=== PATIENT | male | born 1985 | race Two or more races ===

== ENCOUNTER 2019-12-05 08:43 | Outpatient (REF) | payer SELFPAY | END 2019-12-05 08:44 | disposition home or self-care (01) | LOC: HO.LAB 08:43 | PROVIDERS: Visit Provider Internal Medicine | DX: Z20.828 Contact with and (suspected) exposure to other viral communicable diseases (principal) | CPT/HCPCS: 87635 ==

== ENCOUNTER 2020-02-06 17:59 | Outpatient (REF) | payer BC, SELFPAY | END 2020-02-06 18:00 | disposition home or self-care (01) | LOC: HO.LAB 17:59 | PROVIDERS: Visit Provider Internal Medicine | DX: Z20.828 Contact with and (suspected) exposure to other viral communicable diseases (principal) | CPT/HCPCS: C9803; U0003 ==

== ENCOUNTER 2023-06-01 09:06 | Outpatient (AMB) | payer OTHER, SELFPAY ==
--- NOTE | 2023-06-01 09:07 | MHC.PC.OV ---
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 Z[place] Davis Required: No Accompanied by: Self / Same As Patient Allergies No Known Allergies Allergy (Verified 06/01/23 09:29) Medication List - Last Reconciled 06/01/23 by Zain Stevens CNP No Known Home Meds Tobacco use date assessed: 06/01/23 Dental Screening Dental Screen Date: 06/01/23 Did you have a dental visit in the last 12 months?: No Did you have a dental problem in the last 6 months where you did not have access to dental care?: No Was dental information given to patient?: Yes HPI HPI Comments History of Present Illness Details New patient Prior PCP:?[place], [place] Last office visit/CPE: About 10 years Acute issue(s): None PMHx: None SurgHx: None FHx: Mom: Asthma, [place]. Dad: DM, [place]. MGM: DM SocHx: Nonsmoker. Drinks alcohol occasionally. Occasional marijuana edibles He notes that he is not up-to-date on the influenza vaccine. He declines the vaccine He has not seen a dentist in over 18 months [facility] Medical History (Updated 06/01/23 @ 09:47 by Zain Stevens CNP) No pertinent past medical history Surgical History (Updated 06/01/23 @ 09:28 by ANSHUL Foss) No pertinent past surgical history Family History (Updated 06/01/23 @ 09:31 by ANSHUL Foss) Mother Asthma Diabetes Father Diabetes Heart attack Maternal Grandmother Diabetes Family/Other Diabetes Cancer Social History Housing: House Patient Tobacco Use Status: Never used Tobacco e-Cigarette/Vaping Use: Never Used service: No Current occupational status: employed 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 1. Little interest or pleasure in doing things: not at all 2. Feeling down, depressed, or hopeless: more than half the days 3. Trouble falling or staying asleep, or sleeping too much: more than half the days 4. Feeling tired or having little energy: more than half the days 5. Poor appetite or overeating: not at all 6. Feeling bad about yourself - or that you are a failure or have let yourself or your family down: not at all 7. Trouble concentrating on things, such as reading the newspaper or watching television: not at all 8. Moving or speaking so slowly that other people could have noticed. Or the opposite - being so fidgety or restless that you have been moving around a lot more than usual: not at all 9. Thoughts that you would be better off or of hurting yourself in some way: not at all Total score: 6 Depression Screening Interpretation: Positive (Denies depression ) Depression Screening Done: Yes 43536 - PHQ-9 Billing: Yes Source: Developed by Drs. Gucci Omer, Genesis Best, Pacheco Walker and colleagues, with an educational shawna from [employer]. Thrive Questionnaire Date Thrive assessed: 06/01/23 I am a: Patient What is your living situation today?: I have a steady place to live Within the past 12 months, did the food you bought not last and you didn't have the money to get more?: Never true Within the past 12 months, did you worry whether your food would run out before you got money to buy more?: Sometimes True Do you have trouble paying for medicines?: No Do you have trouble getting transportation to medical appointments?: No Do you have trouble paying your heating and electricity bill?: No Do you have trouble taking care of your child, family member or friend?: No Do you have trouble with day-to-day activities such as bathing, preparing meals, shopping, managing finances, etc.?: No Are you currently unemployed and looking for a job?: No Are you interested in more education?: Yes Please select the resources that you would like help with: Utilities and Education Currently or been in a relationship where the following occur: no concerns reported THRIVE Score: 1 AUDIT C Alcohol Use Questionnaire (AUDIT-C) 1. How often do you have a drink containing alcohol?: 2-4 times a month 2. How many drinks containing alcohol do you have on a typical day when you are drinking?: 5 or 6 3. How often do you have six or more drinks on one occasion?: Monthly Total Score: 6 OMAR-7 AMB Questionnaire OMAR-7 Date OMAR - 7 assessed: 06/01/23 Feeling nervous, anxious, or on edge: 2 = More than half the days Not being able to stop or control worryin = More than half the days Worrying too much about different things: 2 = More than half the days Trouble relaxin = Not at all Being so restless that it is hard to sit still: 0 = Not at all Becoming easily annoyed or irritable: 2 = More than half the days Feeling afraid as if something awful might happen: 0 = Not at all Total OMAR-7 score (0-4 normal; 5-9 mild; 10-14 moderate; 15-21 severe): 8 Source: Developed by Drs. Gucci Omer, Genesis Best, Pacheco Walker and colleagues, with an educational shawna from [employer]. OMAR-7 Assessment Billing OMAR-7 Assessment Tool: OMAR-7 Assessment 83983 Review of Systems Const Details: Denies chills, Denies fatigue, Denies fever(s), Denies headache(s) and Denies weakness HEENT Denies change in vision, Denies dizziness, Denies headache(s), Denies hearing loss, Denies nasal congestion, Denies sinus pain, Denies sinus pressure and Denies sore throat Card Denies chest pain, Denies lightheadedness, Denies dyspnea and Denies other (palpitations) Resp Denies cough, Denies dyspnea and Denies wheezing GI Denies abdominal pain, Denies melena, Denies hematochezia, Denies change in bowel habits, Denies dyspepsia and Denies nausea Denies hematuria and Denies dysuria Musc Denies abnormal gait, Denies myalgias, Denies arthralgias, Denies numbness and Denies tingling Skin/Breast Denies rash, Denies unusual bruising and Denies wounds Neuro Denies abnormal gait, Denies dizziness, Denies headache(s), Denies memory loss, Denies numbness, Denies Sensory deficit (Neuro), Denies tingling and Denies weakness Psych Denies anxiety, Denies depression and Denies memory loss Endo Denies cold intolerance, Denies fatigue, Denies heat intolerance, Denies polydipsia and Denies polyuria Jake/Lymph Denies easy bleeding and Denies easy bruising Aller/Immun Denies wheezing Physical exam (Primary Care) Vital Signs: Last Vital Signs Temp 97.6 F 06/01/23 09:09 Pulse 70 06/01/23 09:09 Resp 13 06/01/23 09:09 BP 112/76 06/01/23 09:09 Pulse Ox 98 06/01/23 09:09 Oxygen Delivery Method Room Air 06/01/23 09:09 BMI result Body Mass Index 24.9 Tobacco/Smoking Status: Tobacco use Status Tobacco use date assessed 06/01/23 06/01/23 09:18 Patient Tobacco Use Status Never used Tobacco 06/01/23 09:18 e-Cigarette/Vaping Use Never Used 06/01/23 09:18 PHQ-9: PHQ-9 Score PHQ-9: Total score 6 06/01/23 09:27 Depression Screening Interpretation: Positive (Denies depression ) Thrive Assessment: Date of Thrive Assessment Date Thrive assessed 06/01/23 06/01/23 09:18 Currently or been in a relationship where the following occur: no concerns reported Const Other: General: no acute distress, well developed, alert and awake Nutritional Appearance: well nourished Orientation/consciousness: patient oriented x3 HENMT Head: Yes normocephalic and Yes atraumatic Ears: hearing grossly normal bilaterally and TM's normal bilaterally General nose exam: Normal external nose present and Normal nares present Mouth: Normal oral and palatal mucosa present and moist mucous membranes Teeth and gingiva: dentition normal Throat: Yes oropharynx normal Eyes Pupils: Equal, round and reactive pupils present and Pupil accommodation reflex normal EOM: EOMs intact bilaterally Neck Neck: Yes normal visual inspection, Yes no lymphadenopathy and Yes trachea midline Thyroid: Thyroid normal Carotids: no bruits Lymphatic: no lymphadenopathy noted Chest Chest palpation & inspection: normal inspection of the chest Resp Effort & Inspection: normal respiratory effort Auscultation: clear to auscultation bilaterally Cardio Rate: regular rate Rhythm: regular rhythm Heart sounds: S1 normal heart sound present, S2 normal heart sound present, no gallops, no murmurs and no rubs Bruits: no abdominal aortic bruits and no carotid bruits GI Palpation (GI): No Abdominal aortic bruit present, Soft to palpation, nontender, No hepatosplenomegaly present and No Rebound tenderness present Auscultation: normal bowel sounds General: Yes no CVA tenderness Back/Spine/Pelvis Back: no CVA tenderness Cervical Spine: cervical ROM normal and No Cervical spine tenderness Thoracic/Lumbar Spine: thoraco-lumbar ROM normal, No pain with thoraco-lumbar ROM, No thoracic spinal tenderness and No lumbar spinal tenderness Skin General: warm and dry. Normal skin color. Normal skin turgor Lesions: no lesions Rashes: no rashes Trauma: no lacerations or abrasions Wounds: no wounds Nails: normal Neuro General: patient oriented x3, gait normal and CN's II-XI intact bilaterally Cranial nerves: Yes Equal, round and reactive pupils present Cognition (Neuro): normal cognition Gait exam (Neuro): Normal gait present Motor exam (neuro): 5/5 motor strength present throughout Sensory Exam: No Sensory deficit (Neuro) Deep tendon reflexes (DTR's): Right patellar reflex intensity grade: 2+ and Left patellar reflex intensity grade: 2+ Extrem General: Yes normal to inspection, No edema and No calf tenderness Psych Appearance: grossly normal Affect: normal affect Attitude: cooperative Thought process: Normal thought process present Assessment and Plan Assessment & Plan (1) Normal physical examination, routine: Code(s): Z00.00 - Encounter for general adult medical examination without abnormal findings Plan: No significant physical restrictions or limitations noted Healthy diet and routine exercise encouraged Advised to establish with a dentist for routine dental care Encouraged to get fasting blood work done and follow-up for telehealth visit for labs review in 2-3 weeks Return sooner with symptoms or concerns Verbalized understanding and agreed with treatment plan (2) Laboratory tests ordered as part of a complete physical exam (CPE): Code(s): Z00.00 - Encounter for general adult medical examination without abnormal findings Plan: Fasting labs ordered as part of a complete physical exam. Advised to fast for at least 10 hours before getting labs drawn. May drink water Verbalized understanding and agreed with treatment plan. Orders: Orders Complete Blood Count Auto Diff Today Z00.00 - Encounter for general adult medical examination without abnormal findings Comprehensive [place]. Panel Fast Today Z00.00 - Encounter for general adult medical examination without abnormal findings Lipid Panel Today Z00.00 - Encounter for general adult medical examination without abnormal findings TSH reflex Free T4 Today Z00.00 - Encounter for general adult medical examination without abnormal findings UA CC w/rflx Micro + Cult Today Z00.00 - Encounter for general adult medical examination without abnormal findings Coding Level of Care Code New Pt Prev Care 18-39yr([id number] Diagnoses Normal physical examination, routine Z00.00 Laboratory tests ordered as part of a complete physical exam (CPE) Z00.00 Additional Codes OMAR-7 Assessment Billing - OMAR-7 Assessment Tool: OMAR-7 Assessment 64027 ([id number])
[2023-06-01 09:09] VITALS: BP 112/76; PULSE 70; RESP 13; TEMP 36.4; O2SAT 98; BMI 24.9
== END 2023-06-01 09:47 | disposition home or self-care (01) ==
PROVIDERS: Visit Provider Nurse Practitioner Family
DX: Z00.00 Encounter for general adult medical examination without abnormal findings (principal)
CPT/HCPCS: 99385

== ENCOUNTER 2023-06-09 10:24 | Outpatient (REF) | payer OTHER, SELFPAY ==
[2023-06-09 11:21] LABS: MANUAL DIFF FLAG NO
[2023-06-09 11:44] LABS: Basophils Percent Auto 0.7 % (0-2); Eosinophils Absolute Auto 0.1 X10*3/uL (0.0-0.4); Eosinophils Percent Auto 2.5 % (0-4); Hematocrit 43.6 % (42.0-52.0); Imm Gran Abs Auto 0.01 X10*3/uL (0.00-0.03); Imm Gran Pct Auto 0.2 % (0.0-0.4); Lymphocytes Absolute Auto 1.9 X10*3/uL (1.2-4.9); Lymphocytes Percent Auto 33.5 % (20-40); Mean Corpuscular HGB Conc 34.4 g/dl (31.0-36.0); Mean Corpuscular Hemoglobin 29.8 pg (27.0-33.0); Mean Corpuscular Volume 86.7 fL (80.0-98.0); Monocytes Absolute Auto 0.5 X10*3/uL (0.1-1.2); Monocytes Percent Auto 9.5 % (2-11); Neutrophils Absolute Auto 3.1 x10*3/uL (2.0-8.3); Neutrophils Percent Auto 53.6 % (45-73); Platelet Count 177 X10*3/uL (160-400); Red Blood Count 5.03 X10*6/uL (4.60-5.80); Red Cell Distribution Width 12.8 % (11.0-16.0); White Blood Count 5.7 X10*3/uL (4.8-10.8)
[2023-06-09 11:44] LABS: Appearance Urine Clear; Color Urine Yellow; Glucose Urine UA Negative (Negative); Leukocyte Esterase Urine Negative (Negative); Nitrite Urine Negative (Negative); PH 6.5 (5.0-9.0); Urine Blood Negative (Negative); Urine Ketones Negative (Negative); Urine Protein Negative (Neg-Trace)
[2023-06-09 12:31] LABS: Alanine Aminotransferase 46 U/L (0-40); Albumin Level 4.3 g/dL (3.5-5.0); Alkaline Phosphatase 66 U/L (39-117); Anion Gap 10 (12-20); Aspartate Amino Transferase 29 U/L (5-37); Bilirubin Total 0.6 mg/dL (0.0-1.0); Blood Urea Nitrogen 14 mg/dL (9-16); Calcium 9.4 mg/dL (8.4-10.2); Carbon Dioxide 30 mmol/L (22-29); Chloride 103 mmol/L (96-108); Cholesterol 177 mg/dL (<200); Estimated Glomerular Filt Rate > 60; Glucose Fasting 86 mg/dL (60-99); HDL Cholesterol 65 mg/dL (>40); LDL Cholesterol Calculated 104 mg/dL (<100); Potassium 4.1 mmol/L (3.3-5.1); Sodium 139 mmol/L (135-145); Total Protein 7.2 g/dL (6.5-8.0); Triglycerides 43 mg/dL (<150)
[2023-06-09 12:34] LABS: TSH reflex Free T4 0.48 uIU/mL (0.32-4.0)
== END 2023-06-09 10:25 | disposition home or self-care (01) ==
LOC: HO.WFDLDS 10:24
PROVIDERS: Visit Provider Nurse Practitioner Family
DX: Z00.00 Encounter for general adult medical examination without abnormal findings (principal); Z13.6 Encounter for screening for cardiovascular disorders
CPT/HCPCS: 36415; 80053; 80061; 81003; 84443; 85025

== ENCOUNTER 2023-08-31 08:14 | Outpatient (REF) | payer OTHER, SELFPAY ==
--- NOTE | ~2023-08-31 | XR_ITS ---
EXAMINATION: XR WRIST, RIGHT CLINICAL INFORMATION: Right hand pain. Wrist injury. COMPARISON: None TECHNIQUE: PA, lateral, oblique, and scaphoid views of the right wrist. FINDINGS: No acute fracture or malalignment. There is an old healed fifth metacarpal fracture with dorsal angulation at the shaft. Joint spaces appear well-preserved. Mild soft tissue swelling. 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 No erosions. Carpal alignment appears normal. XR/XR wrist RT w scaphoid IMPRESSION: 1. No acute fracture or malalignment. 2. Old healed fifth metacarpal fracture.
== END 2023-08-31 08:15 | disposition home or self-care (01) ==
LOC: HO.HOSX 08:14
DX: M25.531 Pain in right wrist (principal)
CPT/HCPCS: 73110

== ENCOUNTER 2023-08-31 09:14 | Outpatient (AMB) | payer OTHER, SELFPAY ==
--- NOTE | 2023-08-31 09:22 | A.OFFVIS_ITS ---
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 Pt reports punching a wall on 08/21/23. Since the injury he says it has been swollen and has limited range of motion. He has been taking Tylenol and Ibuprofen to help manage the pain. 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 Patient reports that he is frustrated, hit a wall, and since that time has been experiencing ulnar-sided wrist pain and swelling. Today, he reports that his pain and swelling have improved significantly since time of injury, but he still experiences some pain. He reports no pain in his fingers, no numbness or tingling. 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 Cognitive needs: No Hearing needs: No Vision needs: No Review of Systems Const All systems reviewed & are unremarkable except as noted in HPI and below Physical Exam Vital Signs: BMI result Body Mass Index 24.3 Const Other: Patient is alert, oriented, cooperative, and in no acute distress HEENT Head: Yes normocephalic and Yes atraumatic Resp Effort & Inspection: normal respiratory effort and able to speak in complete sentences Cardio Jugular venous distension: no JVD Neuro General: gait normal Cognition (Neuro): normal cognition Extrem Other: Patient is alert, oriented, and in no acute distress. Neuro: Median, ulnar, radial nerves motor and sensory intact and sensation is normal to the tips of all digits. Vascular: Cap refill brisk Pain: [id number] tenderness to palpation over the right ulnar styloid in the ECU tendon groove. No anatomical snuffbox tenderness No radial styloid tenderness No tenderness to palpation about the rest of the wrist. No tenderness to palpation at or over the metacarpals ROM: Right hand and wrist range of motion full and intact Skin: No lacerations or abrasions. Minimal edema over the right ulnar styloid General: No ecchymosis, erythema, or evidence of infection. Sunken deformities of the 4th and 5th metacarpals at the level of the MCP joint noted, likely secondary to old fractures. Psych: Appears grossly normal Affect normal Attitude cooperative Psych Appearance: grossly normal Mental Status: mental status grossly normal Results Reviewed Results Reviewed: X-rays obtained in the office today and independently reviewed by me, Felipe Mario PA-C, demonstrate no fracture or acute bony abnormality. Volar angulation of the distal 4th and 5th metacarpal noted, likely secondary to old fracture. Assessment & Plan Assessment & Plan (1) Wrist pain, right: Code(s): M25.531 - Pain in right wrist Category: Medical Plan 1. Right wrist pain Date of injury 08/21/2023 Patient reports that symptoms have improved significantly since date of injury Due to this, no acute intervention indicated at this time Patient advised to continue to move his right wrist and hand, but is advised to take it easy with any heavy lifting or impact Patient advised to avoid punching morris in the future order to prevent future injury Patient advised to call and make an appointment if he still is experiencing symptoms in 4-6 weeks Patient will follow-up p.r.n. with any acute concerns Orders: Orders XR wrist RT w scaphoid Today M79.641 - Pain in right hand Coding Level of Care Code New Pt Level 3 (70183) Diagnoses Wrist pain, right M25.531
[2023-08-31 09:24] VITALS: BMI 24.3
== END 2023-08-31 09:50 | disposition home or self-care (01) ==
DX: M25.531 Pain in right wrist (principal)
CPT/HCPCS: 99203

== ENCOUNTER 2023-10-12 16:36 | Outpatient (AMB) | payer OTHER, SELFPAY ==
--- NOTE | 2023-10-12 16:38 | A.OFFPC_ITS ---
Vital Signs 10/12/23 16:41 Height 5 ft 8 in Weight 160 lb 4 oz BMI 24.4 BP 128/78 Blood Pressure Location Lt brachial Position Sitting Respiration 16 Pulse 76 Pulse Source Pulse Oximeter Temp 98.4 F Temp Source Oral Pulse Oximetry (%) 97 Oxygen Delivery Method Room Air Intake Visit Reasons: RegularVisit Intake Note: patient here c/o tips of his fingers get real cold and white. 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 He also reports associated white coloration of the affected fingers. He showed a photo on his phone with white coloration of the affected fingers. His started 3 months ago and have progressively gotten worse. 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 He denies exposure to heat or cold at home or work. He reports being stressing 7/10 daily on a scale of 1/10 with 10 being the highest. He attributes his stress to everyday stuff regarding work and his children. He denies anxiety and depression. He denies any other symptoms. 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 Gucci Omer, Genesis Best, Pacheco Walker and colleagues, with an educational shawna from [employer]. Review of Systems Const Details: Const Denies chills, Denies fatigue, Denies fever(s), Denies headache(s) and Denies weakness ENT Denies dizziness and Denies headache(s) Card Denies chest pain, Denies lightheadedness, Denies dyspnea and Denies other (Palpitations) Resp Denies cough, Denies dyspnea, Denies wheezing and Denies other ( shortness of breath) GI Denies abdominal pain, Denies melena, Denies hematochezia, Denies change in bowel habits, Denies dyspepsia and Denies nausea Denies hematuria and Denies dysuria Musc Denies abnormal gait, Denies myalgias, Denies arthralgias, Denies numbness and Denies tingling Skin/Breast Denies rash, Denies unusual bruising and Denies wounds Neuro Denies abnormal gait, Denies dizziness, Denies headache(s), Denies memory loss, Denies numbness, Denies Sensory deficit (Neuro), Denies tingling and Denies weakness Psych Denies anxiety, Denies depression, Denies memory loss Endo Denies cold intolerance, Denies fatigue, Denies heat intolerance, Denies polydipsia and Denies polyuria Aller/Immun Denies wheezing Physical exam (Primary Care) Vital Signs: Last Vital Signs Temp 98.4 F 10/12/23 16:41 Pulse 76 10/12/23 16:41 Resp 16 10/12/23 16:41 BP 128/78 10/12/23 16:41 Pulse Ox 97 10/12/23 16:41 Oxygen Delivery Method Room Air 10/12/23 16:41 BMI result Body Mass Index 24.4 Tobacco/Smoking Status: Tobacco use Status Tobacco use date assessed 10/12/23 10/12/23 16:44 Patient Tobacco Use Status Never used Tobacco 10/12/23 16:40 e-Cigarette/Vaping Use Never Used 10/12/23 16:40 Thrive Assessment: Date of Thrive Assessment Date Thrive assessed 06/01/23 10/12/23 16:40 Const Other: General: no acute distress and well developed Nutritional Appearance: well nourished Orientation/consciousness: patient oriented x3 HENMT Head: Yes normocephalic and Yes atraumatic Eyes General: appearance normal, both eyes and all related structures Pupils: Equal, round and reactive pupils present EOM: EOMs intact bilaterally Resp Effort & Inspection: normal respiratory effort Auscultation: clear to auscultation bilaterally Cardio Rate: regular rate Rhythm: regular rhythm Heart sounds: S1 normal heart sound present, S2 normal heart sound present, no gallops, no murmurs and no rubs GI Palpation (GI): No Abdominal aortic bruit present, Soft to palpation, nontender, No hepatosplenomegaly present and No Rebound tenderness present Auscultation: normal bowel sounds General: Yes no CVA tenderness Back/Spine/Pelvis Back: no CVA tenderness Cervical Spine: cervical ROM normal and No Cervical spine tenderness Thoracic/Lumbar Spine: thoraco-lumbar ROM normal, No pain with thoraco-lumbar ROM, No thoracic spinal tenderness and No lumbar spinal tenderness Extrem General: Yes normal to inspection, No edema and No calf tenderness Skin General: warm and dry. Normal skin color. Normal skin turgor Lesions: no lesions Rashes: no rashes Trauma: no lacerations or abrasions Wounds: no wounds Nails: normal Neuro General: patient oriented x3, gait normal and no focal neuro deficit Cranial nerves: Yes Equal, round and reactive pupils present Cognition (Neuro): normal cognition Gait exam (Neuro): Normal gait present Sensory Exam: No Sensory deficit (Neuro) Psych Appearance: grossly normal Affect: normal affect Attitude: cooperative Thought process: Normal thought process present Assessment and Plan Assessment & Plan (1) Elevated ALT measurement: Code(s): R74.01 - Elevation of levels of liver transaminase levels Plan: Recent lab results reviewed with the patient; unremarkable findings except for slightly elevated ALT level, 46 Likely hepatic steatosis He notes that he consumes alcohol on weekends and sometimes drinks a lot Healthy diet and routine exercise encouraged Encouraged to limit or avoid alcohol consumption Will monitor liver panel level periodically or if presents with related symptoms Verbalized understanding and agreed with the plan (2) Raynaud phenomenon: Code(s): I73.00 - Raynaud's syndrome without gangrene Plan: Intermediate cold sensation and white discoloration of the right index and left middle and ring fingers He endorses significant stress related to work and family. No anxiety or depression Advised to keep his finger warm when experiencing symptoms Routine exercise encouraged to improve blood flow to his fingertips Follow-up for an extended physical exam next year or return sooner with worsening or new signs and symptoms Verbalized understanding and agreed with the treatment plan Coding Level of Care Code Est Pt Level 4 (13314) Complex EM visit Add On G2211 Diagnoses Elevated ALT measurement R74.01 Raynaud phenomenon I73.00
[2023-10-12 16:41] VITALS: BP 128/78; PULSE 76; RESP 16; TEMP 36.9; O2SAT 97; BMI 24.4
== END 2023-10-12 17:11 | disposition home or self-care (01) ==
PROVIDERS: Visit Provider Nurse Practitioner Family
DX: R74.01 Elevation of levels of liver transaminase levels (principal); I73.00 Raynaud's syndrome without gangrene
CPT/HCPCS: 99214

== ENCOUNTER 2024-06-02 10:04 | Outpatient (AMB) | payer OTHER, SELFPAY ==
--- NOTE | 2024-06-02 10:07 | A.OFFPC_ITS ---
Vital Signs 06/02/24 10:16 Height 5 ft 8 in Weight 171 lb 4 oz BMI 26.0 BP 116/60 Blood Pressure Location Rt brachial Position Sitting Respiration 16 Pulse 66 Pulse Source Pulse Oximeter Temp 98.2 F Temp Source Oral Pulse Oximetry (%) 98 Oxygen Delivery Method Room Air Intake Visit Reasons: CPE Intake Note: patient here for CPE Earth Observations Chief Scientist Required: No Allergies No Known Allergies Allergy (Verified 06/02/24 10:41) Tobacco use date assessed: 10/12/23 Dental Screening Dental Screen Date: 06/01/23 HPI HPI Comments History of Present Illness Details 39-year-old male presents for an extende d physical exam. Acute issue(s) - Astigmatism. He wears prescription gla sses. Past Medical History - Elevated ALT, astigmatism Social History - Nonsmoker. Does not vape. Drinks 5-10 beers 1 day weekly. Smokes cannabis occasionally - Has been making healthy dietary choice s. Exercises routinely. Generally sleep well Health maintenance - Last eye exam was few months ago with Anuja Ross: diagnosed with astigmatism of one of his eyes. Record not available. He will sign a release for his PCP to obtain his ophthalmology record - Last dental visit was over a year ago; He has a dental appointment in August 2024; encouraged to follow up as planned - Last tetanus vaccine was more than 10 years ago; received Tdap vaccine today - Has not been vaccinated for the flu season; declines vaccination [facility] Medical History (Updated 10/12/23 @ 17:12 by Zain Stevens CNP) No pertinent past medical history Surgical History (Updated 06/01/23 @ 09:28 by ANSHUL Foss) No pertinent past surgical history Family History Mother Asthma Diabetes Father Diabetes Heart attack Maternal Grandmother Diabetes Family/Other Diabetes Cancer Social History Housing: House Patient Tobacco Use Status: Never used Tobacco e-Cigarette/Vaping Use: Never Used service: No Current occupational status: employed 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 1. Little interest or pleasure in doing things: not at all 2. Feeling down, depressed, or hopeless: not at all 3. Trouble falling or staying asleep, or sleeping too much: several days 4. Feeling tired or having little energy: several days 5. Poor appetite or overeating: not at all 6. Feeling bad about yourself - or that you are a failure or have let yourself or your family down: not at all 7. Trouble concentrating on things, such as reading the newspaper or watching television: not at all 8. Moving or speaking so slowly that other people could have noticed. Or the opposite - being so fidgety or restless that you have been moving around a lot more than usual: not at all 9. Thoughts that you would be better off or of hurting yourself in some way: not at all Total score: 2 Depression Screening Interpretation: Negative Depression Screening Done: Yes 11161 - PHQ-9 Billing: Yes Source: Developed by Drs. Gucci Omer, Genesis Best, Pacheco Walker and colleagues, with an educational shawna from [employer]. Thrive Questionnaire Date Thrive assessed: 06/02/24 I am a: Patient What is your living situation today?: I have a steady place to live Within the past 12 months, did the food you bought not last and you didn't have the money to get more?: Sometimes True Within the past 12 months, did you worry whether your food would run out before you got money to buy more?: I choose not to answer this question Do you have trouble paying for medicines?: No Do you have trouble getting transportation to medical appointments?: No Do you have trouble paying your heating and electricity bill?: Yes Do you have trouble taking care of your child, family member or friend?: No Do you have trouble with day-to-day activities such as bathing, preparing meals, shopping, managing finances, etc.?: No Are you currently unemployed and looking for a job?: No Are you interested in more education?: Yes Please select the resources that you would like help with: None Currently or been in a relationship where the following occur: No concerns reported THRIVE Score: 2 AUDIT C Alcohol Use Questionnaire (AUDIT-C) 1. How often do you have a drink containing alcohol?: 2-4 times a month 2. How many drinks containing alcohol do you have on a typical day when you are drinking?: 5 or 6 3. How often do you have six or more drinks on one occasion?: Weekly Total Score: 7 Score Reviewed/Action Taken: Yes OMAR-7 AMB Questionnaire OMAR-7 Date OMAR - 7 assessed: 06/02/24 Feeling nervous, anxious, or on edge: 0 = Not at all Not being able to stop or control worryin = Several days Worrying too much about different things: 0 = Not at all Trouble relaxin = Not at all Being so restless that it is hard to sit still: 0 = Not at all Becoming easily annoyed or irritable: 1 = Several days Feeling afraid as if something awful might happen: 0 = Not at all Total OMAR-7 score (0-4 normal; 5-9 mild; 10-14 moderate; 15-21 severe): 2 Source: Developed by Drs. Gucci Omer, Genesis Best, Pacheco Walker and colleagues, with an educational shawna from [employer]. OMAR-7 Assessment Billing OMAR-7 Assessment Tool: OMAR-7 Assessment 79475 Review of Systems Const Details: Denies chills, Denies fatigue, Denies fever(s), Denies headache(s) and Denies weakness HEENT Denies change in vision, Denies dizziness, Denies headache(s), Denies hearing loss, Denies nasal congestion, Denies sinus pain, Denies sinus pressure and Denies sore throat Card Denies chest pain, Denies lightheadedness, Denies dyspnea and Denies other (palpitations) Resp Denies cough, Denies dyspnea and Denies wheezing GI Denies abdominal pain, Denies melena, Denies hematochezia, Denies change in bowel habits, Denies dyspepsia and Denies nausea Denies hematuria and Denies dysuria Musc Denies abnormal gait, Denies myalgias, Denies arthralgias, Denies numbness and Denies tingling Skin/Breast Denies rash, Denies unusual bruising and Denies wounds Neuro Denies abnormal gait, Denies dizziness, Denies headache(s), Denies memory loss, Denies numbness, Denies Sensory deficit (Neuro), Denies tingling and Denies weakness Psych Denies anxiety, Denies depression and Denies memory loss Endo Denies cold intolerance, Denies fatigue, Denies heat intolerance, Denies polydipsia and Denies polyuria Jake/Lymph Denies easy bleeding and Denies easy bruising Aller/Immun Denies wheezing Physical exam (Primary Care) Vital Signs: Last Vital Signs Temp 98.2 F 06/02/24 10:16 Pulse 66 06/02/24 10:16 Resp 16 06/02/24 10:16 BP 116/60 06/02/24 10:16 Pulse Ox 98 06/02/24 10:16 Oxygen Delivery Method Room Air 06/02/24 10:16 BMI result Body Mass Index 26.0 Tobacco/Smoking Status: Tobacco use Status Tobacco use date assessed 10/12/23 06/02/24 10:09 Patient Tobacco Use Status Never used Tobacco 06/02/24 10:09 e-Cigarette/Vaping Use Never Used 06/02/24 10:09 PHQ-9: PHQ-9 Score PHQ-9: Total score 2 06/02/24 11:04 Depression Screening Interpretation: Negative Thrive Assessment: Date of Thrive Assessment Date Thrive assessed 06/02/24 06/02/24 10:09 Currently or been in a relationship where the following occur: No concerns reported Const Other: General: no acute distress, well developed, alert and awake Nutritional Appearance: well nourished Orientation/consciousness: patient oriented x3 HENMT Head: Yes normocephalic and Yes atraumatic Ears: hearing grossly normal bilaterally and TM's normal bilaterally General nose exam: Normal external nose present and Normal nares present Mouth: Normal oral and palatal mucosa present and moist mucous membranes Teeth and gingiva: dentition normal Throat: Yes oropharynx normal Eyes Pupils: Equal, round and reactive pupils present and Pupil accommodation reflex normal EOM: EOMs intact bilaterally Neck Neck: Yes normal visual inspection, Yes no lymphadenopathy and Yes trachea midline Thyroid: Thyroid normal Carotids: no bruits Lymphatic: no lymphadenopathy noted Chest Chest palpation & inspection: normal inspection of the chest Resp Effort & Inspection: normal respiratory effort Auscultation: clear to auscultation bilaterally Cardio Rate: regular rate Rhythm: regular rhythm Heart sounds: S1 normal heart sound present, S2 normal heart sound present, no gallops, no murmurs and no rubs Bruits: no abdominal aortic bruits and no carotid bruits GI Palpation (GI): No Abdominal aortic bruit present, Soft to palpation, nontender, No hepatosplenomegaly present and No Rebound tenderness present Auscultation: normal bowel sounds General: Yes no CVA tenderness Back/Spine/Pelvis Back: no CVA tenderness Cervical Spine: cervical ROM normal and No Cervical spine tenderness Thoracic/Lumbar Spine: thoraco-lumbar ROM normal, No pain with thoraco-lumbar ROM, No thoracic spinal tenderness and No lumbar spinal tenderness Skin General: warm and dry. Normal skin color. Normal skin turgor Lesions: no lesions Rashes: no rashes Trauma: no lacerations or abrasions Wounds: no wounds Nails: normal Neuro General: patient oriented x3, gait normal and CN's II-XI intact bilaterally Cranial nerves: Yes Equal, round and reactive pupils present Cognition (Neuro): normal cognition Gait exam (Neuro): Normal gait present Motor exam (neuro): 5/5 motor strength present throughout Sensory Exam: No Sensory deficit (Neuro) Deep tendon reflexes (DTR's): Right patellar reflex intensity grade: 2+ and Left patellar reflex intensity grade: 2+ Extrem General: Yes normal to inspection, No edema and No calf tenderness Psych Appearance: grossly normal Affect: normal affect Attitude: cooperative Thought process: Normal thought process present Immunizations Boostrix Tdap 2.5 Lf unit-8 mcg-5 Lf/0.5 mL intramuscular syringe Performing Provider: Zain Stevens CNP Performing Location: [facility] [place] [facility] Administered by: Ebenezer Khanna RN on 06/02/24 11:04 Dose Route Admin Location Dispensed Lot Number Expiration Date 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 0.5 mL IM Left Deltoid 0.5 mL [id number] 03/03/26 [id number] [employer] VIS Given Date VIS Provided VIS Publication Date 06/02/24 Single Vaccine 20 Eligibility Eligibility Date Funding Source Not [facility] Eligible 06/02/24 Private Coding Level of Care Code Est Pt Prev Care 18-39y(21156) Diagnoses Normal physical examination, routine Z00.00 Laboratory tests ordered as part of a complete physical exam (CPE) Z00.00 Additional Codes OMAR-7 Assessment Billing - OMAR-7 Assessment Tool: OMAR-7 Assessment 45621 ([id number]) PHQ-9 - 53154 - PHQ-9 Billing: Yes ([id number]) Assessment & Plan Assessment & Plan (1) Normal physical examination, routine: Code(s): Z00.00 - Encounter for general adult medical examination without abnormal findings Category: Medical Plan: No significant functional limitation noted. Healthy diet and routine exercise encouraged. Advised to cut down on his alcohol intake; drink no more than 2 drinks daily or 7 drinks weekly. Perform lab work and follow-up for telehealth visit in 2-3 weeks. Return sooner with symptoms or concerns. Verbalized understanding and agreed with treatment plan. (2) Laboratory tests ordered as part of a complete physical exam (CPE): Code(s): Z00.00 - Encounter for general adult medical examination without abnormal findings Category: Medical Plan: Fasting labs ordered as part of a complete physical exam. Advised to fast for at least 10 hours before getting labs drawn. May drink water Verbalized understanding and agreed with treatment plan. Orders: Orders Comprehensive Dunn. Panel Fast Today Z00.00 - Encounter for general adult medical examination without abnormal findings Lipid Panel Today Z00.00 - Encounter for general adult medical examination without abnormal findings Microalbumin, Random (w Creat) Today Z00.00 - Encounter for general adult medical examination without abnormal findings TSH reflex Free T4 Today Z00.00 - Encounter for general adult medical examination without abnormal findings Vitamin D 25-OH Total Today Z00.00 - Encounter for general adult medical examination without abnormal findings Complete Blood Count Auto Diff Today Z00.00 - Encounter for general adult medical examination without abnormal findings UA CC w/rflx Micro + Cult Today Z00.00 - Encounter for general adult medical examination without abnormal findings TDaP Immunization Today Z23 - Encounter for immunization
[2024-06-02 10:16] VITALS: BP 116/60; PULSE 66; RESP 16; TEMP 36.8; O2SAT 98; BMI 26.0
== END 2024-06-02 11:02 | disposition home or self-care (01) ==
LOC: HO.HMCFM 10:05
PROVIDERS: PCP Nurse Practitioner Family; Visit Provider Nurse Practitioner Family
DX: Z23 Encounter for immunization (principal); Z00.00 Encounter for general adult medical examination without abnormal findings

== ENCOUNTER → 2024-06-02 10:04 | Outpatient (BNVA) | payer OTHER, SELFPAY | PROVIDERS: PCP Nurse Practitioner Family; Visit Provider Nurse Practitioner Family | DX: Z00.00 Encounter for general adult medical examination without abnormal findings (principal); Z23 Encounter for immunization | CPT/HCPCS: 90471; 90715; 96127 ==

== ENCOUNTER 2024-06-14 09:28 | Outpatient (REF) | payer OTHER, SELFPAY ==
[2024-06-14 09:51] LABS: MANUAL DIFF FLAG NO
[2024-06-14 09:57] LABS: Appearance Urine Clear; Color Urine Yellow; Glucose Urine UA Negative (Negative); Leukocyte Esterase Urine Negative (Negative); Nitrite Urine Negative (Negative); PH 6.5 (5.0-9.0); Specific Gravity - Urine 1.025 (1.005-1.025); Urine Blood Negative (Negative); Urine Ketones Negative (Negative); Urine Protein Negative (Neg-Trace)
[2024-06-14 10:03] LABS: Basophils Absolute Auto 0.1 X10*3/uL (0.0-0.2); Basophils Percent Auto 0.8 % (0-2); Eosinophils Absolute Auto 0.3 X10*3/uL (0.0-0.4); Eosinophils Percent Auto 4.8 % (0-4); Hematocrit 44.2 % (42.0-52.0); Hemoglobin 14.9 g/dl (14.0-18.0); Imm Gran Abs Auto 0.01 X10*3/uL (0.00-0.03); Imm Gran Pct Auto 0.2 % (0.0-0.4); Lymphocytes Absolute Auto 1.9 X10*3/uL (1.2-4.9); Lymphocytes Percent Auto 29.5 % (20-40); Mean Corpuscular HGB Conc 33.7 g/dl (31.0-36.0); Mean Corpuscular Hemoglobin 29.7 pg (27.0-33.0); Mean Platelet Volume 10.8 fL (9.4-12.4); Monocytes Absolute Auto 0.6 X10*3/uL (0.1-1.2); Monocytes Percent Auto 8.9 % (2-11); Neutrophils Absolute Auto 3.5 x10*3/uL (2.0-8.3); Neutrophils Percent Auto 55.8 % (45-73); Platelet Count 166 X10*3/uL (160-400); Red Blood Count 5.02 X10*6/uL (4.60-5.80); Red Cell Distribution Width 12.5 % (11.0-16.0); White Blood Count 6.3 X10*3/uL (4.8-10.8)
[2024-06-14 10:53] LABS: Creatinine Urine 198.66 mg/dL; Microalbum/Creatinine Ratio Ur 2.5 ug/mg cr (<30)
[2024-06-14 11:51] LABS: Alanine Aminotransferase 57 U/L (0-40); Albumin Level 4.2 g/dL (3.5-5.0); Alkaline Phosphatase 70 U/L (39-117); Anion Gap 11 (12-20); Aspartate Amino Transferase 36 U/L (5-37); Bilirubin Total 0.7 mg/dL (0.0-1.0); Blood Urea Nitrogen 11 mg/dL (9-16); Calcium 9.5 mg/dL (8.4-10.2); Carbon Dioxide 27 mmol/L (22-29); Chloride 106 mmol/L (96-108); Cholesterol 192 mg/dL (<200); Estimated Glomerular Filt Rate > 60; Glucose Fasting 92 mg/dL (60-99); HDL Cholesterol 62 mg/dL (>40); LDL Cholesterol Calculated 118 mg/dL (<100); Potassium 4.3 mmol/L (3.3-5.1); Sodium 140 mmol/L (135-145); TSH reflex Free T4 0.65 uIU/mL (0.32-4.0); Total Protein 6.9 g/dL (6.5-8.0); Triglycerides 64 mg/dL (<150); Vitamin D 25-OH Total 22.6 ng/mL (>30)
== END 2024-06-14 09:29 | disposition home or self-care (01) ==
LOC: HO.10HDL 09:28
PROVIDERS: Visit Provider Nurse Practitioner Family
DX: Z00.00 Encounter for general adult medical examination without abnormal findings (principal); Z13.6 Encounter for screening for cardiovascular disorders
CPT/HCPCS: 36415; 80053; 80061; 81003; 82043; 82306; 82570; 84443; 85025

== ENCOUNTER 2024-06-19 13:42 | Outpatient (AMB) | payer OTHER, SELFPAY ==
--- NOTE | 2024-06-19 13:38 | A.OFFPC_ITS ---
[facility] Int[facility] Note: patient here for 2-3 wks Telehealth follow for lab review. 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 He drinks 6 or more beers on weekends. He offers no complaints and denies acute symptoms at this time. 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[employer] Cognitive needs: No Hearing needs: No Vision needs: No Questionnaire Thrive Questionnaire Date Thrive assessed: 05/22/24 I am a: Patient What is your living situation today?: I have a steady place to live Within the past 12 months, did the food you bought not last and you didn't have the money to get more?: Sometimes True Within the past 12 months, did you worry whether your food would run out before you got money to buy more?: I choose not to answer this question Do you have trouble paying for medicines?: No Do you have trouble getting transportation to medical appointments?: No Do you have trouble paying your heating and electricity bill?: Yes Do you have trouble taking care of your child, family member or friend?: No Do you have trouble with day-to-day activities such as bathing, preparing meals, shopping, managing finances, etc.?: No Are you currently unemployed and looking for a job?: No Are you interested in more education?: Yes Please select the resources that you would like help with: None Currently or been in a relationship where the following occur: No concerns reported THRIVE Score: 2 OMAR-7 AMB Questionnaire OMAR-7 Date OMAR - 7 assessed: 06/02/24 Source: Developed by Drs. Gucci Omer, Genesis Best, Pacheco Walker and colleagues, with an educational shawna from [employer]. Review of Systems Const Details: Denies chills, Denies fatigue, Denies fever(s), Denies headache(s) and Denies weakness Cardiac Denies chest pain, Denies claudication, Denies leg edema, Denies lightheadedness, Denies palpitations, Denies dyspnea, Denies dyspnea on exertion, Denies orthopnea and Denies other (Loss of consciousness) Resp Denies cough, Denies excessive phlegm production, Denies dyspnea, Denies dyspnea on exertion, Denies snoring and Denies wheezing Physical exam (Primary Care) Tobacco/Smoking Status: Tobacco use Status Tobacco use date assessed 06/19/24 06/19/24 13:41 Patient Tobacco Use Status Never used Tobacco 06/19/24 13:41 e-Cigarette/Vaping Use Never Used 06/19/24 13:41 Thrive Assessment: Date of Thrive Assessment Date Thrive assessed 05/22/24 06/19/24 13:41 Currently or been in a relationship where the following occur: No concerns reported Const Other: Patient is alert oriented x3. Telehealth Telehealth Telehealth Platform: Telephone Location of provider rendering services: practice address Location of patient: address on file Patient Identification confirmed using: Name, : Yes Telehealth method: voice only Patient verbally consented to treatment: Yes Patient verbally consented to billing insurance company: Yes Patient informed of any privacy concerns related to visit: Yes Coding Level of Care Code Tele Est Pt Level 3 (43829) Diagnoses Elevated LDL cholesterol level E78.00 Vitamin D deficiency E55.9 Elevated ALT measurement R74.01 Time Spent (min) 10 Assessment & Plan Assessment & Plan (1) Elevated LDL cholesterol level: Code(s): E78.00 - Pure hypercholesterolemia, unspecified Category: Medical Plan: Recent LDL level is slightly elevated, 118. Triglycerides, total cholesterol, and HDL levels are normal. Likely due to poor diet or excessive alcohol intake. Advised to limit foods high in saturated fat and avoid foods high in trans fat. Routine exercise encouraged. Fast for 10-12 hours, may drink water, perform lipid panel blood work 2-3 days before next visit. Follow-up for telehealth visit in 2-3 weeks. Return sooner with symptoms or concerns. Verbalized understanding and agreed with the plan. (2) Vitamin D deficiency: Code(s): E55.9 - Vitamin D deficiency, unspecified Category: Medical Plan: Recent vitamin-D level is low, 22.6. Vitamin D3 1000 units daily ordered; advised to take as prescribed. Will recheck vitamin-D level in eight weeks. Verbalized understanding and agreed with the plan. (3) Elevated ALT measurement: Code(s): R74.01 - Elevation of levels of liver transaminase levels Category: Medical Plan: Recent ALT level is slightly elevated, 57. He has history of elevated ALT. Hepatic steatosis is likely. Healthy diet, including low fat encouraged. Encouraged to limit or avoid alcohol intake. Drink no more than 2 drinks daily or 5 weeks weekly. Will recheck liver enzymes in 2 months. Verbalized understanding and agreed with the plan. Orders: Orders Vitamin D 25-OH Total 2 Months E55.9 - Vitamin D deficiency, unspecified Lipid Panel 2 Months E78.00 - Pure hypercholesterolemia, unspecified Liver Panel 2 Months R74.01 - Elevation of levels of liver transaminase levels Medications: New cholecalciferol (vitamin D3) 25 mcg PO DAILY 90 days 90 tabs 1RF
== END 2024-06-19 15:37 | disposition home or self-care (01) ==
LOC: HO.HMCFM 13:42
PROVIDERS: PCP Nurse Practitioner Family; Visit Provider Nurse Practitioner Family
DX: E78.00 Pure hypercholesterolemia, unspecified (principal); E55.9 Vitamin D deficiency, unspecified; R74.01 Elevation of levels of liver transaminase levels

== ENCOUNTER → 2024-06-19 13:42 | Outpatient (BNVA) | payer OTHER, SELFPAY | PROVIDERS: PCP Nurse Practitioner Family; Visit Provider Nurse Practitioner Family | DX: E78.00 Pure hypercholesterolemia, unspecified (principal); E55.9 Vitamin D deficiency, unspecified; R74.01 Elevation of levels of liver transaminase levels | CPT/HCPCS: 98966 ==

== ENCOUNTER 2024-10-24 15:09 | Outpatient (AMB) | payer OTHER, SELFPAY ==
--- NOTE | 2024-10-24 15:12 | MHC.PC.OV ---
Vital Signs 10/24/24 15:16 Height 5 ft 8 in Weight 164 lb 4 oz BMI 25.0 BP 110/82 Blood Pressure Location Rt brachial Position Sitting Respiration 12 Pulse 64 Pulse Source Pulse Oximeter Temp 98.5 F Temp Source Oral Pulse Oximetry (%) 98 Oxygen Delivery Method Room Air Intake Visit Reasons: lower back Intake Note: Lower back pain. Swim Instructor Required: No Allergies No Known Allergies Allergy (Verified 10/24/24 15:16) Tobacco use date assessed: 10/24/24 Dental Screening Dental Screen Date: 06/19/24 HPI HPI Comments History of Present Illness Details 39-year-old male presents with complaints of persistent left-sided low back soreness/tightness which radiates to his left groin and lasted one week/last Wednesday. He started experiencing similar symptoms upon waking up this morning; symptoms have progressively worsened, worst with prolonged sitting or standing. He denies tingling or numbness. Denies fall, inury, trauma. Denies strainging. Denies loss of bowel or bladder control. 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 Cognitive needs: No Hearing needs: No Vision needs: No Questionnaire Thrive Questionnaire Date Thrive assessed: 05/22/24 I am a: Patient What is your living situation today?: I have a steady place to live Within the past 12 months, did the food you bought not last and you didn't have the money to get more?: Sometimes True Within the past 12 months, did you worry whether your food would run out before you got money to buy more?: I choose not to answer this question Do you have trouble paying for medicines?: No Do you have trouble getting transportation to medical appointments?: No Do you have trouble paying your heating and electricity bill?: Yes Do you have trouble taking care of your child, family member or friend?: No Do you have trouble with day-to-day activities such as bathing, preparing meals, shopping, managing finances, etc.?: No Are you currently unemployed and looking for a job?: No Are you interested in more education?: Yes Please select the resources that you would like help with: None Currently or been in a relationship where the following occur: No concerns reported THRIVE Score: 2 OMAR-7 AMB Questionnaire OMAR-7 Date OMAR - 7 assessed: 06/02/24 Source: Developed by Drs. Gucci Omer, Genesis Best, Pacheco Walker and colleagues, with an educational shawna from [employer]. Review of Systems Const Details: Const Denies chills, Denies fatigue, Denies fever(s), Denies headache(s) and Denies weakness ENT Denies dizziness and Denies headache(s) Card Denies chest pain, Denies lightheadedness, Denies dyspnea and Denies other (Palpitations) Resp Denies cough, Denies dyspnea, Denies wheezing and Denies other ( shortness of breath) GI Denies abdominal pain, Denies melena, Denies hematochezia, Denies change in bowel habits, Denies dyspepsia and Denies nausea Denies hematuria and Denies dysuria Musc Reports as per HPI Skin/Breast Denies rash, Denies unusual bruising and Denies wounds Neuro Denies abnormal gait, Denies dizziness, Denies headache(s), Denies memory loss, Denies numbness, Denies Sensory deficit (Neuro), Denies tingling and Denies weakness Psych Denies anxiety, Denies depression, Denies memory loss Endo Denies cold intolerance, Denies fatigue, Denies heat intolerance, Denies polydipsia and Denies polyuria Aller/Immun Denies wheezing Physical exam (Primary Care) Vital Signs: Last Vital Signs Temp 98.5 F 10/24/24 15:16 Pulse 64 10/24/24 15:16 Resp 12 10/24/24 15:16 BP 110/82 10/24/24 15:16 Pulse Ox 98 10/24/24 15:16 Oxygen Delivery Method Room Air 10/24/24 15:16 BMI result Body Mass Index 25.0 Tobacco/Smoking Status: Tobacco use Status Tobacco use date assessed 10/24/24 10/24/24 15:18 Patient Tobacco Use Status Never used Tobacco 10/24/24 15:12 e-Cigarette/Vaping Use Never Used 10/24/24 15:12 Thrive Assessment: Date of Thrive Assessment Date Thrive assessed 05/22/24 10/24/24 15:12 Currently or been in a relationship where the following occur: No concerns reported Const Other: General: no acute distress and well developed Nutritional Appearance: well nourished Orientation/consciousness: patient oriented x3 HENMT Head: Yes normocephalic and Yes atraumatic Eyes General: appearance normal, both eyes and all related structures Pupils: Equal, round and reactive pupils present EOM: EOMs intact bilaterally Resp Effort & Inspection: normal respiratory effort Auscultation: clear to auscultation bilaterally Cardio Rate: regular rate Rhythm: regular rhythm Heart sounds: S1 normal heart sound present, S2 normal heart sound present, no gallops, no murmurs and no rubs GI Palpation (GI): No Abdominal aortic bruit present, Soft to palpation, nontender, No hepatosplenomegaly present and No Rebound tenderness present Auscultation: normal bowel sounds General: Yes no CVA tenderness Back/Spine/Pelvis Back: no CVA tenderness Cervical Spine: cervical ROM normal and No Cervical spine tenderness Thoracic/Lumbar Spine: thoraco-lumbar ROM normal, No pain with thoraco-lumbar ROM, No thoracic spinal tenderness and No lumbar spinal tenderness. Slight left lower back tenderness with palpation Extrem General: Yes normal to inspection, No edema and No calf tenderness Skin General: warm and dry. Normal skin color. Normal skin turgor Neuro General: patient oriented x3, gait normal and no focal neuro deficit Cranial nerves: Yes Equal, round and reactive pupils present Cognition (Neuro): normal cognition Gait exam (Neuro): Normal gait present Sensory Exam: No Sensory deficit (Neuro) Psych Appearance: grossly normal Affect: normal affect Attitude: cooperative Thought process: Normal thought process present Coding Level of Care Code Est Pt Level 3 (42085) Diagnoses Low back pain M54.50 Assessment & Plan Assessment & Plan (1) Low back pain: Code(s): M54.50 - Low back pain, unspecified Category: Medical Plan: Slight left lower back tenderness with palpation. No overt injury or trauma. Likely muscle strain. May take Tylenol ibuprofen as needed. Warm/cool compresses encouraged. Encouraged to perform fasting blood work and follow-up for a telehealth visit as planned. Return with worsening or new symptoms. Verbalized understanding and agreed with the plan.
[2024-10-24 15:16] VITALS: BP 110/82; PULSE 64; RESP 12; TEMP 36.9; O2SAT 98; BMI 25.0
== END 2024-10-24 15:47 | disposition home or self-care (01) ==
LOC: HO.HMCFM 15:10
PROVIDERS: PCP Nurse Practitioner Family; Visit Provider Nurse Practitioner Family
DX: M54.50 Low back pain, unspecified (principal)